=== PATIENT | female | born 1970 | race Caucasian/White ===

== ENCOUNTER 2022-07-16 13:53 | Outpatient (CLI) | payer BC, SELFPAY ==
--- NOTE | ~2022-07-16 | CT_ITS ---
EXAMINATION: CT abdomen pelvis wo con DATE: 07/16/2022 14:22 INDICATION: Periumbilical bulge. No pain. TECHNIQUE: Computed tomography (CT) of the abdomen and pelvis was performed without intravenous contr ast. Automated exposure control and iterative reconstruction technique were employed. Exam dose: 383 .18 mGy-cm total exam DLP. COMPARISON: None. FINDINGS: 3 mm and 5 mm posterior basilar right lower lobe pulmonary nodules, the larger with attenua tion greater than 100, likely a calcified pulmonary granuloma. If there are no lung cancer risk facto rs, consider follow-up CT chest imaging in one year; if there are lung cancer risk factors, consider 6 month follow-up. The lung bases are clear of infiltrate or consolidation. Normal heart size. No pericardial or pleural effusion. Postoperative change of the stomach. The liver, gallbladder, bile ducts, pancreas, pancreatic duct and spleen are unremarkable. Normal morphology of the adrenal glands. No renal mass lesion or urinary tract calculus or hydroureteronephrosis. The uterus and adnexal areas are unremarkable. Mild atherosclerotic calcification but normal caliber of the abdominal aorta. No intraperitoneal or r etroperitoneal or pelvic mass lesion or adenopathy or ascites is detected. There is a prominent amount of fecal material within the colon but no bowel obstruction or bowel wall thickening. No pneumatosis. No intraperitoneal free air. Approximately 2.2 cm deep and 2.7 cm wide 3.1 cm vertical dimension immediate supraumbilical ventral abdominal wall hernia with approximately 5.6 mm wide mouth. Severe degenerative disc disease at L1-2. Moderately severe degenerative disc disease at L3-4. No suspicious osteolytic or osteoblastic lesions. IMPRESSION: 2.2 x 2.7 x 3.1 cm immediately supraumbilical ventral abdominal wall fat-containing nima ia with approximately 5.6 mm wide mouth 3 mm and 5 mm posterior basilar right lower lobe pulmonary nodules; consider [address] follow up depending upon lung cancer risk factors Postoperative change of the stomach Reviewed, dictated and finalized at [facility]. Reviewed, dictated and finalized at [facility]. IMPRESSION: 2.2 x 2.7 x 3.1 cm immediately supraumbilical ventral abdominal wa ll fat-containing hernia with approximately 5.6 mm wide mouth 3 mm and 5 mm posterior basilar right lower lobe pulmonary nodules; consider [address] follow up depending upon lung cancer risk factors Postoperative change of the stomach
== END 2022-07-16 13:54 | disposition home or self-care (01) ==
PROVIDERS: Visit Provider Surgery Plastic and Reconstructive Surgery
DX: R19.00 Intra-abdominal and pelvic swelling, mass and lump, unspecified site (principal); K43.9 Ventral hernia without obstruction or gangrene; R91.8 Other nonspecific abnormal finding of lung field
CPT/HCPCS: 74176

== ENCOUNTER 2022-10-29 08:43 | Outpatient (CLI) | payer OTHER, BC, SELFPAY ==
[2022-10-29 09:16] LABS: Hemoglobin 14.2 g/dL (12.0-15.0); Mean Corpuscular Hemoglobin 31.1 pg (26-34); Mean Corpuscular Volume 94.1 fl (80-100); Mean Platelet Volume 10.5 fl (7.4-10.4); Platelet Count Result 259 k/mm3 (150-375); Red Blood Count 4.57 M/mm3 (4.2-5.4); Red Cell Distribution Width 12.3 % (11.5-14.5); White Blood Count 3.8 K/mm3 (4.5-10.0)
[2022-10-29 09:27] LABS: Albumin Level 4.7 g/dL (3.5-5.1); Anion Gap 5 mmol/L (8-16); Blood Urea Nitrogen 18 mg/dL (7-17); Carbon Dioxide 30 mmol/L (22-30); Chloride 101 mmol/L (98-107); Estimated Glomerular Filt Rate > 60; Glucose 93 mg/dL (65-110); Potassium 4.3 mmol/L (3.4-5.0); Sodium 136 mmol/L (137-145)
[2022-10-29 09:52] LABS: Prealbumin 25.9 mg/dL (17.6-36.0)
[2022-10-29 10:00] LABS: Iron 116 ug/dL (37-170)
[2022-11-05 15:29] LABS: Vitamin B1 53 nmol/L (8-30)
== END 2022-10-29 08:44 | disposition home or self-care (01) ==
PROVIDERS: Visit Provider Surgery Plastic and Reconstructive Surgery
DX: R63.4 Abnormal weight loss (principal)
CPT/HCPCS: 36415; 80048; 82040; 83540; 84134; 84425; 85027

== ENCOUNTER 2022-11-14 01:57 | Day surgery (SDC) | payer OTHER, BC, SELFPAY ==
[2022-10-30 09:18] VITALS: BMI 24.6
--- NOTE | 2022-10-30 09:24 | PC.NURSE ---
Report to the Outpatient Waiting Room, entrance under the green pavilion located off [facility], at time 0600 on date 11/14/22. Planned Procedure Time: 0730. Time changes happen often and if your time is changed the preop area will call you the afternoon before. - You and your visitor will be asked to self-screen and do not enter if you have any COVID symptoms. - Only one visitor is requested with a max of two and NO children visitors are allowed at this time. - The patient visitor may be requested to leave or wait in car when not with patient due to distancing restrictions. - A mask is optional within the hospital. Patients may have clear liquids (water, carbonated beverages, clear teas, apple juice) until 3 hours prior to surgery with a maximum of 20 ounces. - No food from midnight until time of surgery Take the following medications with a SIP of water the morning of surgery: TYLENOL IF NEEDED Medications to discontinue per physician: VITAMINS/SUPPLEMENTS Date to take last dose: 11/10/22 Please no make-up, nail cymraes, hairspray, perfume, deodorant, or body powder the day of surgery. No jewelry (including any body piercings) or valuables the day of surgery, leave them at home. Please take a shower or bath the night before, or the morning of, surgery with an antibacterial soap. Wear comfortable, loose fitting clothing. - Jewelry must be removed prior to entering the operating room. Rings and piercings that are not removed may be cut off. - The hospital will not accept responsibility for valuables. - Please leave all valuables, including medications, at home the day of surgery. If you are going home after surgery, a licensed bulk tank driver must drive you home. - NO public transportation without another adult if you receive anesthesia. - We recommend that an adult stay with you for 24 hours following discharge. - We also recommend that you do not drive, make important decision, drink alcoholic beverages, or take any drugs that were not prescribed by your health care provider for at least 24 hours after your discharge time. Follow any additional instructions given to you from your surgeon. If you or anyone in your household have experienced Covid symptoms in the past week, please notify your surgeon or the nurse liaison at the phone number below for possible testing. Telephone instructions given to PT - ARNIE LEON and asked if any additional questions and then verbalized understanding. Patient advised to call surgeon office or pre surgery nurse liaison [phone] if any additional questions.
[2022-11-14] VITALS (9 sets, daily range): BP systolic 114–139; BP diastolic 59–79; PULSE 60–90; RESP 14–20; TEMP 36.1–37.2; O2SAT 96–100
[2022-11-14] MEDS: LACTATED RINGERS 1,000 ML 30 ML IV CONT ×2 (06:40→14:08)
[2022-11-14 06:41] LABS: Urine Cotinine NEGATIVE
--- NOTE | 2022-11-14 07:12 | WPDANESEPPF ---
Anes - Initial Pre Proc Eval Procedure: Operation Date: 11/14/22 07:30 Proposed Procedures p Belt Lipectomy with Liposuction, - Rodrigo Ames MD s Bilateral Breast Augmentation - MD denisa Handley Open Repair of Ventral Hernia Possible Mesh - Shannon Olsen MD Operation Date: 11/14/22 11:00 Proposed Procedures p Belt Lipectomy with Liposuction - MD denisa Handley Bilateral Breast Augmentation - Rodrigo Ames MD s Generic - To Be Determined - Shannon Olsen MD Date/Time: 11/14/22 07:12 Surgeon: Shannon Olsen MD Pre Op Diagnosis: supra umbilical hernia Patient Data Age: 52 Gender: F Height: 1.69 m Weight: 73.8 kg Last Vital Signs Temp 37.2 C 11/14/22 07:04 Pulse 60 11/14/22 07:04 Resp 16 11/14/22 07:04 BP 122/76 11/14/22 07:04 Pulse Ox 100 11/14/22 07:04 O2 Del Method Room Air 11/14/22 07:04 Allergies Allergy/AdvReac Type Severity Reaction Status Date / Time No Known Allergies Allergy Verified 11/14/22 06:05 Home Medications Medication Instructions Recorded Confirmed Type pramipexole 0.25 mg tablet 0.25 mg PO QHS 07/10/22 11/14/22 History zolpidem 10 mg tablet 10 mg PO QHS PRN Insomnia 07/10/22 11/14/22 History acetaminophen 650 mg 650 mg PO Q12H 07/28/22 11/14/22 History tablet,extended release (Tylenol Arthritis Pain) pseudoephedrine HCl 120 mg 120 mg PO Q12H PRN Allergy Symptoms 07/28/22 11/14/22 History tablet,extended release (Sudogest 12-hour) multivitamin 1 tablet PO DAILY 10/30/22 11/14/22 History venlafaxine 75 mg capsule,extended 75 mg PO DAILY 11/14/22 11/14/22 History release 24 hr Laboratory Tests 11/14/22 06:14 Cotinine Negative Patient hx anesthesia problems: none Family hx anesthesia problems: none Results Review: All pre-operative results and documents have been reviewed as part of the pre-operative evaluation. [facility] Past Medical History Medical History Restless leg syndrome Surgical History Surgical History History of delivery 1990, 1992, 2003 History of sleeve gastrectomy Vertical sleeve gastrectomy 2020 S/P cervical disc replacement 2019 Social History Social History Smoking status: Never smoker Alcohol intake: current Drinks per week: 1 Substance use: never Substance use type: does not use Spiritual care concerns: No Anes - Eval Final PreProcedure Day of Procedure 11/14/22 07:12 Patient weight: normal Heart: regular rate and rhythm Lungs: clear to auscultation Airway: Mallampati scale class II Neurological: alert and oriented Last oral intake: >/= 8 hours ASA classification: II Emergent: no Anesthetic plan: proceed Anesthesia type and monitoring: general ETT and standard monitoring Results Review: All pre-operative results and documents have been reviewed as part of the pre-operative evaluation. Informed Consent: The patient's anesthetic plan and its attendant risks and benefits were discussed with the patient/family/POA. Questions were solicited and answers provided to the satisfaction of the patient/family/POA.
--- NOTE | 2022-11-14 07:18 | PM.IMHP ---
H&P: HPI History of Present Illness Date/Time: 11/14/22 07:18 Chief Complaint: ventral hernia Narrative: Consuelo is a 52 y/o female who presents to the office at the request of Dr. Ames for evaluation of an umbilical hernia. Patient was being evaluated for abdominoplasty when a bulge near her umbilicus could be palpated by Dr. Waller. CT abd/pelvis with contrast on 07/16/22 revealed a 2.2 x 2.7 x 3.1 cm immediately supraumbilical ventral abdominal wall fat-containing hernia with approximately 5.6 mm wide mouth. Patient states she is not experiencing any pain and cannot see any visual bulging at her umbilicus. Review of Systems Review of Systems: All systems reviewed & are unremarkable except as noted in HPI and below PMFSH Past Medical History Medical History Restless leg syndrome Surgical History Surgical History History of delivery 1990, 1992, 2003 History of sleeve gastrectomy Vertical sleeve gastrectomy 2020 S/P cervical disc replacement 2019 Social History Social History Smoking status: Never smoker Alcohol intake: current Drinks per week: 1 Substance use: never Substance use type: does not use Spiritual care concerns: No Meds Home Medications and Allergies Home Medications Medication Instructions Recorded Confirmed Type pramipexole 0.25 mg tablet 0.25 mg PO QHS 07/10/22 11/14/22 History zolpidem 10 mg tablet 10 mg PO QHS PRN Insomnia 07/10/22 11/14/22 History acetaminophen 650 mg 650 mg PO Q12H 07/28/22 11/14/22 History tablet,extended release (Tylenol Arthritis Pain) pseudoephedrine HCl 120 mg 120 mg PO Q12H PRN Allergy Symptoms 07/28/22 11/14/22 History tablet,extended release (Sudogest 12-hour) multivitamin 1 tablet PO DAILY 10/30/22 11/14/22 History venlafaxine 75 mg capsule,extended 75 mg PO DAILY 11/14/22 11/14/22 History release 24 hr Allergies Allergy/AdvReac Type Severity Reaction Status Date / Time No Known Allergies Allergy Verified 11/14/22 06:05 Vital Signs Vital Signs - 24 hr 11/14/22 07:04 Temperature 37.2 C Pulse Rate 60 Respiratory Rate 16 Blood Pressure 122/76 Pulse Oximetry 100 Oxygen Delivery Room Air Exam Const: General: cooperative, comfortable and no acute distress GI: Other: small supraumbilical ventral hernia Assessment and Plan Assessment and plan (1) Supraumbilical hernia: Code(s): K43.9 - Ventral hernia without obstruction or gangrene Status: Acute Assessment and Plan: will plan repair concurrently c planned abdominoplasty
--- NOTE | 2022-11-14 07:19 | WPDHPUPDATE1 ---
History and Physical Update Update Date/Time: 11/14/22 07:19 History and Physical has been reviewed, including an updated exam of the patient. There are NO changes in the patient's condition. Risks, benefits, and alternatives have been discussed and questions answered. Patient agrees to proceed with procedure.
--- NOTE | 2022-11-14 07:19 | W.PM.PROC2 ---
Procedure Note - Detailed Date of Procedure 11/14/22 Pre-op Diagnosis encounter for cosmetic surgery supra umbilical hernia Post-op Diagnosis Same Procedure Performed 1. Bilateral Augmentation Mastopexy 2. Belt lipectomy with suction lipectomy Surgeon Rodrigo Ames MD Anesthesia General Findings Bilateral Natbradly SoftTouch 400cc implants Right - REF# SSLP-400 SN [id number] Left - REF# SSLP-400 SN [id number] Tissue removed: 2182.1 grams Lipoaspirat: 1250 cc Description of Procedure They are here today for the above. Previously and again today the risks, benefits, alternatives were discussed in extensive detail. I wanted them to be very realistic about the risks involved as well as expectations. We discussed aftercare and what to monitor for. I was very upfront about the risks of wound breakdown leading to loss of skin, open wounds, and need for additional procedures with permanent abdominal deformity. We discussed DVT/PE risks and management. Made sure answered all of their questions to their satisfaction today and consent was obtained. They were marked in the preoperative holding area with their verification. The patient was taken to the operating room placed supine on the operating table. Anesthesia was provided by anesthesiology. A Kapoor catheter was started. Placed in a prone position with care taken to protect from injury. Back Stab incisions were made and tumesced with a tumescent solution. Once adequate time was allowed for hemostasis a 5mm basket cannula was utilized to complete suction lipectomy based on S.A.F.E. technique in multiple planes and passes. This was also utilized for discontinuous undermining. Suction lipectomy continued to result based on pre-operative planning, intra-operative observation, and rolling pinch test which were in full agreement. A 10 blade was used to make the upper incision and elevated inferiorly. resected based on pre-operative planning with care to ensure adequate laxity when the patient is flexed for a tension free closure. I closed all space with 2-0 Vicryl. I then approximated using a 3 point suture with 2-0 Vicryl followed by 3-0 stratafix ,running subcuticular 4-0 Monocryl, and tissue glue. Patient was then turned supine. He was reprepped and draped in a standard 360 degree fashion. Breast 1% lidocaine with 0.25% bupivacaine was used to provide a field block. Tegaderm nipple Sow were placed. A 15 blade used to make an incision along the inframammary fold. Dissection was continued at 45 degree angle until the chest wall as identified. I incised the pectoralis major along its inferior border and completely released the inferior border leaving the medial border intact. I created a subpectoral pocket in the appropriate dimensions based on our preoperative planning for the implant. I then copiously irrigated with saline solution and verified a strict hemostasis. Next the use a triple antibiotic and Betadine containing solution to irrigate the pocket. I washed my gloves with the triple antibiotic and Betadine solution. We washed the implant immediately upon opening it with this solution and only opened it when we needed it. I used implant funnel and no-touch technique. The implant was introduced into the pocket using the funnel. Having verified positioning of the implant this was closed using 2-0 Vicryl followed by 3-0 Monocryl in a running subcuticular 4-0 Monocryl followed by tissue glue. Abdomen I placed the patient in a flexed position to verify the upper and lower markings would reach. I then placed supine. A thorough abdominal examination was completed and the supraumbilical ventral hernia was identified and protected. Stab incisions were made and tumescent solution infiltrated. Once adequate time was allowed for hemostasis a 5mm basket cannula was utilized to complete suction lipectomy based on S.A.F.E. technique in multiple planes and passes. Care was taken
--- NOTE | 2022-11-14 07:20 | WPDHPUPDATE1 ---
History and Physical Update Update Date/Time: 11/14/22 07:20 History and Physical has been reviewed, including an updated exam of the patient. There are NO changes in the patient's condition. Risks, benefits, and alternatives have been discussed and questions answered. Patient agrees to proceed with procedure.
[2022-11-14] MEDS: SCOPOLAMINE 1.5 MG PATCH TRANSDERM (07:25)
[2022-11-14] MEDS: TRANEXAMIC ACID 1,000MG/ISO100 1,000 MG/100 ML BAG 200 MG IVPB (07:35)
[2022-11-14] MEDS: ceFAZolin 2 GM/D5W 50 ML 2 GM/50 ML BAG IVPB (07:35)
[2022-11-14] MEDS: BUPIVACAINE/EPINEPHRINE 0.5% 30 ML VIAL INFILTRATE (09:34)
[2022-11-14] MEDS: NACL 0.9% IRRIG POUR BOTTLE 900 ML, GENTAMICIN SULFATE INJ 160 MG, ceFAZolin 2 GM, POVI... IRRIGATION (10:00)
--- NOTE | 2022-11-14 10:09 | SUR.OPER ---
back lipectomy/liposuction 08 to 916. Patient then log rolled with assistance of 6 from prone position to supine. Kapoor secure to bedsheet/tubing between legs at foot of bed and visible.
--- NOTE | 2022-11-14 10:41 | SUR.OPER ---
supine liposuction started 10:42.
--- NOTE | 2022-11-14 10:59 | SUR.OPER ---
right lateral 10:55 to 11:04/ left lateral 11:06 to 1114. No axillary roll on turns as per surgeon.
[2022-11-14] MEDS: ceFAZolin SODIUM 1 GM VIAL 2 GM IV PUSH (11:35)
[2022-11-14] MEDS: LIDOCAINE HCL 1% PF 30 ML VIAL INFILTRATE (11:38)
[2022-11-14] MEDS: LACTATED RINGERS IRRIG 1,000 ML, LIDOCAINE HCL 1% LOCAL INJ 50 ML, EPINEPHrine HCL INJ ... INFILTRATE (12:22)
--- NOTE | 2022-11-14 13:01 | P.OP_ITS ---
Procedure Note - Detailed Date of Procedure 11/14/22 Pre-op Diagnosis supraumbilical ventral hernia Post-op Diagnosis Same Procedure Performed Open repair supraumbilical ventral hernia with mesh Surgeon Shannon Olsen MD Anesthesia General Indications 52-year-old female presenting with supraumbilical ventral hernia, confirmed via imaging. Patient is going to undergo abdominoplasty and will have concurrent repair of hernia Findings supraumbilical ventral hernia with incarcerated fat measuring approximately 1 cm Description of Procedure The patient was in the operating room in the supine position and had already undergone general anesthesia. Dr. Hanks had already began the abdominoplasty and removed a large portion of the subcutaneous tissue. Upon arriving in the operating room, the hernia was noted to be in the supraumbilical area. I began by dissecting the umbilicus off the hernia sac. I then dissected around the area of the neck of the hernia, exposing the fascia. I then opened the hernia sac, which was noted to contain preperitoneal. The hernia sac was then excised. I then returned the preperitoneal fat into the intra-abdominal cavity. I then dissected anterior and posterior to the fascia, to create space to place the mesh. The defect was noted to be approximately 1 cm. A 4.6 cm round Ventralex mesh was then placed in the underlay position. I was able to suture the mesh in to position with 4 interrupted 0 Ethibond sutures. I then closed the anterior fascia over our mesh repair with interrupted [address] Hanks then return to the operating room to complete abdominoplasty. Implants 4.6 cm round Ventralex mesh in underlay position Estimated Blood Loss 5 Drains No Packing No Pathology None sent Complications No immediate complications Condition Stable Disposition No change [facility] Billing Surgery - Charge Forward: Surgery Billing
--- NOTE | 2022-11-14 13:34 | SUR.OPER ---
EBL 75ml
--- NOTE | 2022-11-14 14:25 | SUR.OPER ---
to pacu in bed head of bed elevated and legs elevated with 3 pillows under knees
--- NOTE | 2022-11-14 15:42 | PC.NURSE ---
This patient, Consuelo Boyce, was received from PACU via bed on 11/14/22 at 1542. Patient/family oriented to unit policies and routines.
[2022-11-14] MEDS: LACTATED RINGERS 1,000 ML 125 ML IV CONT (16:46)
[2022-11-14] MEDS: GABAPENTIN 300 MG CAPSULE PO (16:46)
[2022-11-14] MEDS: carisoprodoL (*CRX) 350 MG TABLET PO (18:22)
[2022-11-14] MEDS: SIMETHICONE 80 MG TAB.CHEW PO (19:20)
[2022-11-14] MEDS: ENOXAPARIN 40 MG/0.4 ML SYRINGE SUB-Q (20:51)
[2022-11-14] MEDS: oxyCODONE/ACETAMINOPHEN (*CRX) 5-325 MG TABLET PO (20:52)
[2022-11-14] MEDS: DOCUSATE SODIUM 100 MG CAPSULE PO (20:52)
[2022-11-14] MEDS: PRAMIPEXOLE 0.25 MG TABLET PO (20:52)
[2022-11-15 00:10] VITALS: BP 105/72; PULSE 72; RESP 18; TEMP 36.8; O2SAT 100
[2022-11-15] MEDS: carisoprodoL (*CRX) 350 MG TABLET PO ×2 (00:12→05:33)
[2022-11-15 05:00] VITALS: BP 104/59; PULSE 85; RESP 18; TEMP 37.1; O2SAT 99
[2022-11-15] MEDS: oxyCODONE/ACETAMINOPHEN (*CRX) 5-325 MG TABLET PO ×2 (05:02→09:44)
--- NOTE | 2022-11-15 06:54 | WPDANESPN ---
Anes - Prog Note Post-Op Date/Time: 11/15/22 06:54 Cardiovascular status: normal Respiratory status: normal Airway patency: baseline Mental status: baseline Post-Op hydration status: normal Vital Signs: Last Vital Signs Temp 98.8 F 11/15/22 05:00 Pulse 85 11/15/22 05:00 Resp 18 11/15/22 05:00 BP 104/59 L 11/15/22 05:00 Pulse Ox 99 11/15/22 05:00 O2 Del Method Room Air 11/15/22 05:00 O2 Flow Rate 8 11/14/22 14:40 Pain Score (VAS): 0/10 I/O: Intake & Output 11/14/22 11/14/22 11/15/22 15:59 23:59 07:59 Intake Total 7682 917 4686 Output Total 200 750 550 Balance 950 -450 1150 Post-procedural complaints: none Patient Feedback: Patient satisfied with anesthetic care.
[2022-11-15 07:40] VITALS: BP 106/54; PULSE 82; RESP 18; TEMP 37.3; O2SAT 97
--- NOTE | 2022-11-15 07:43 | WPDPN ---
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 Olsen). Will discharge home. Today we had a lengthy discussion about the care. Activity limitations. What monitor for. What is an emergency and when to proceed the ER/ dial 911. This was a lengthy open-ended conversation answering all their questions. I will see them back. This was with her and her family. (2) Skin laxity: Code(s): L57.4 - Cutis laxa senilis Status: Acute (3) Supraumbilical hernia: Code(s): K43.9 - Ventral hernia without obstruction or gangrene Status: Acute (4) History of weight loss surgery: Code(s): Z98.84 - Bariatric surgery status Status: Acute Subjective Date/time seen: 11/15/22 07:43 Interval history: She is doing very well after bilateral breast augmentation, belt lipectomy with suction lipectomy, and ventral hernia repair (by Dr. Olsen). She is ambulating. Tolerating diet. Pain controlled. She states she feels very well. No shortness of breath. No chest pain. No calf tenderness. Review of Systems Review of Systems: All systems reviewed & are unremarkable except as noted in HPI and below Exam Narrative: Alert and oriented no obvious distress Respiratory on labored Bilateral breast soft. No signs of infection. No hematoma. No seroma. Abdomen is healing well. No signs of infection. No hematoma. No seroma. No calf tenderness. Negative Homans. Objective Data Vital Signs Vital Signs: Vital Signs - 24 hr 11/14/22 14:10 11/14/22 14:25 11/14/22 14:40 Temperature 36.1 C L Pulse Rate 90 76 72 Respiratory Rate 14 18 16 Blood Pressure 137/79 133/73 132/69 Pulse Oximetry 100 100 100 Oxygen Delivery Simple Face Mask Simple Face Mask Simple Face Mask Oxygen Flow Rate 8 8 8 11/14/22 14:55 11/14/22 15:10 11/14/22 15:25 Temperature Pulse Rate 88 80 90 Respiratory Rate 18 20 16 Blood Pressure 129/61 121/59 L 114/60 Pulse Oximetry 97 97 96 Oxygen Delivery Room Air Room Air Room Air Oxygen Flow Rate 11/14/22 16:00 11/14/22 20:50 11/14/22 20:50 Temperature 36.7 C 36.4 C L Pulse Rate 75 84 Respiratory Rate 18 18 Blood Pressure 139/78 118/74 Pulse Oximetry 98 Oxygen Delivery Room Air Oxygen Flow Rate 11/15/22 00:10 11/15/22 00:10 11/15/22 05:00 Temperature 36.8 C Pulse Rate 72 Respiratory Rate 18 Blood Pressure 105/72 Pulse Oximetry 100 Oxygen Delivery Room Air Room Air Oxygen Flow Rate 11/15/22 05:00 Temperature 37.1 C Pulse Rate 85 Respiratory Rate 18 Blood Pressure 104/59 L Pulse Oximetry 99 Oxygen Delivery Oxygen Flow Rate Intake/Output Intake/Output: Intake & Output 11/12/22 11/13/22 11/14/22 11/15/22 23:59 23:59 23:59 23:59 Intake Total 1950 1700 Output Total 950 550 Balance 1000 1150 Meds/Results Medications: Active Medications Generic Name Dose Route Start Last Admin Trade Name Freq PRN Reason Stop Dose Admin Carisoprodol 350 mg 11/14/22 18:00 11/15/22 05:33 Carisoprodol (*Crx) 350 Mg Tablet PO 350 mg Q6HR ANDREA Administration Diazepam 5 mg 11/14/22 13:41 Diazepam (*Crx) 5 Mg Tablet PO TID PRN Anxiety Docusate Sodium 100 mg 11/14/22 21:00 11/14/22 20:52 Docusate Sodium 100 Mg Capsule PO 100 mg Q12HR ANDREA Administration Enoxaparin Sodium 40 mg 11/14/22 20:00 11/14/22 20:51 Enoxaparin 40 Mg/0.4 Ml Syringe SUB-Q 40 mg Q24H ANDREA Administration Gabapentin 300 mg 11/14/22 17:00 11/14/22 16:46 Gabapentin 300 Mg Capsule PO 300 mg TID ANDREA Administration Ketorolac Tromethamine 15 mg 11/14/22 13:41 Ketorolac 15 Mg/Ml Vial (*Bkc) IV PUSH Q6H PRN Pain Rated 4-6 Morphine Sulfate 2 mg
--- NOTE | 2022-11-15 07:45 | P.DS_ITS ---
DS: Admitting Diagnosis Discharge Date 11/15/2022 Admitting Diagnosis skin laxity, micromastia, supraumbilical ventral hernia DS: Discharge Diagnosis Discharge Diagnosis (1) Micromastia: Code(s): N64.82 - Hypoplasia of breast Status: Acute (2) Skin laxity: Code(s): L57.4 - Cutis laxa senilis Status: Acute (3) Supraumbilical hernia: Code(s): K43.9 - Ventral hernia without obstruction or gangrene Status: Acute (4) History of weight loss surgery: Code(s): Z98.84 - Bariatric surgery status Status: Acute DS: Summary Hospital Course Hospital Course: She underwent bilateral breast augmentation, belt lipectomy with suction lipectomy, and ventral hernia repair (by Dr. Olsen). Postoperatively has done very well. Ambulating. Pain controlled. Tolerating p.o.. Will discharge home. Time Spent with Patient Time attestation: Total time spent providing and/or coordinating discharge services: Exam Narrative: Alert and oriented no obvious distress Respiratory on labored Bilateral breast soft. No signs of infection. No hematoma. No seroma. Abdomen is healing well. No signs of infection. No hematoma. No seroma. No calf tenderness. Negative Homans. Discharge Plan Discharge Patient Disposition: Home, Self-Care Discharge Instructions: POST OPERATIVE DISCHARGE INSTRUCTIONS RODRIGO AMES M.D. [facility] [address] [place] [address] * No driving for 24 hours after anesthesia and while you are taking pain medication. * Take all prescribed medication as directed * Diet as tolerated. * No lifting or activity that raises blood pressure for 48 hours. * Regular walking / ambulation. * May shower 24 hours after surgery. Once you shower do not take pain medication before showering as the combination of medication and heat may cause you to feel dizzy or pass out. * No pools or tubs for 2 weeks. * Slowly stand up straight as tolerated. * No straining or lifting more than 20 pounds. * If no bowel movement within 24 hours may use laxative. * Call with any questions or concerns. * Dressing Care: Continue abdominal binder / foam 23 hours per day. If you have any questions or concerns, please call the office . If it is after hours you will be directed to the commissioning specialist exchange. Shortness of breath, chest pain, or other medical emergency dial 911 / proceed to the Emergency Room. Remove the Scopolamine patch that was placed behind your ear in 72 hours or less. Wash your hands after touching. Stand Alone Forms: General Discharge Instructions Follow-up/Referrals: Shannon Olsen MD [Physician] - 2 Weeks Rodrigo Ames MD [Physician] - 1 Week Discharge Medications: Continued pramipexole 0.25 mg tablet 0.25 mg PO QHS zolpidem 10 mg tablet 10 mg PO QHS PRN (Reason: Insomnia) acetaminophen [Tylenol Arthritis Pain] 650 mg tablet extended release 650 mg PO Q12H pseudoephedrine HCl [Sudogest 12-hour] 120 mg tablet extended release 120 mg PO Q12H PRN (Reason: Allergy Symptoms) multivitamin Tablet 1 tablet PO DAILY venlafaxine 75 mg capsule,extended release 24hr 75 mg PO DAILY
[2022-11-15] MEDS: DOCUSATE SODIUM 100 MG CAPSULE PO (08:04)
[2022-11-15] MEDS: GABAPENTIN 300 MG CAPSULE PO (08:05)
== END 2022-11-15 10:16 | disposition home or self-care (01) ==
LOC: ANHSURGERY 10:02 → ANHOB2 15:43
PROVIDERS: Surgery Plastic and Reconstructive Surgery; Visit Provider Surgery
PROC: (CPT 15830; principal; 2022-11-14 07:30)
PROC: (CPT 19316; 2022-11-14 07:30)
PROC: 0WQF0ZZ Repair Abdominal Wall, Open Approach (ICD-10-PCS; CPT 49560; 2022-11-14 07:30)
DX: Z41.1 Encounter for cosmetic surgery (principal); N64.82 Hypoplasia of breast; L57.4 Cutis laxa senilis; K43.9 Ventral hernia without obstruction or gangrene; Z98.84 Bariatric surgery status; G25.81 Restless legs syndrome; Z79.899 Other long term (current) drug therapy
CPT/HCPCS: 19316; 19325; 15877; 15830; 15847; 15839; 49560; 49568; 80307; 99199; A9270; C1781; J0171; J0330; J0690; J1100; J1170; J1580; J1650; J2250; J2370; J2405; J2704; J2710; J3010; J7120